=== PATIENT | female | born 1940 | race Caucasian/White ===

== ENCOUNTER → 2016-05-13 | Outpatient (CLI) | payer MEDICARE | LOC: KOH-I 10:25 | DX: R05 Cough (principal); J98.11 Atelectasis; J90 Pleural effusion, not elsewhere classified | CPT/HCPCS: 71020 ==

== ENCOUNTER → 2016-08-04 | Outpatient (CLI) | payer MEDICARE | LOC: KOH-I 12:49 | DX: R05 Cough (principal); J90 Pleural effusion, not elsewhere classified | CPT/HCPCS: 71020 ==

== ENCOUNTER 2016-08-11 19:19 | Emergency (ER) | payer MEDICARE ==
[2016-08-11 23:21] LABS: HEMOGLOBIN 13.1 gm/dl (12.3-15.3); RED BLOOD COUNT 4.34 M/UL (4.00-5.10); WHITE BLOOD COUNT 4.5 K/UL (4.5-11.0)
== END 2016-08-12 02:20 | disposition home or self-care (01) ==
LOC: ER1 19:19
PROVIDERS: Emergency Medicine
DX: R05 Cough (principal); J40 Bronchitis, not specified as acute or chronic; Z79.899 Other long term (current) drug therapy
CPT/HCPCS: 36415; 71010; 71275; 80053; 82550; 82553; 83605; 83874; 83880; 84484; 85025; 93005; 99285; J7050; Q9963

== ENCOUNTER → 2016-08-18 | Outpatient (CLI) | payer MEDICARE | LOC: ECHO 11:00 | DX: I50.20 Unspecified systolic (congestive) heart failure (principal); I51.7 Cardiomegaly; I35.8 Other nonrheumatic aortic valve disorders | CPT/HCPCS: ECHO; 93306 ==

== ENCOUNTER 2020-05-06 09:31 | Emergency (ER) | payer MEDICARE ==
[~2020-05-06 09:31] MED LIST: ABILIFY10 MG PO; AMIODARONE HCL200 MG PO; ASPIRIN CHEWABL81 MG PO; AUGMENTIN 875-1 EACH PO; BACTRIM DS TAB1 EACH PO; BACTROBAN OINT22 GM EXT; CARDIZEM60 MG PO; CARVEDILOL12.5 MG PO; CARVEDILOL6.25 MG PO; CEFUROXIME250 MG PO; CLARITIN10 MG PO; COREG25 MG PO; CYMBALTA 30 MG30 MG PO; CYMBALTA60 MG PO; DEPAKOTE500 MG PO; DIGOX125 MCG PO; DILTIAZEM 24HR240 M1 PO; GLUCOPHAGE500 MG PO; HYDROCODON-ACE1 EAC6 PO; IMDUR ER TAB 3030 MG PO; ISORDIL TAB 3030 MG PO; LANTUS100 UNIT/1 SQ; LASIX20 MG PO; LIPITOR TAB 2020 MG PO; LISINOPRIL10 MG PO; LISINOPRIL20 MG PO; LOPRESSOR 25 MG25 MG PO; MS CONTIN15 MG PO; NITROGLYCERIN0.4 MG SL; NORCO 10-325 T1 EACH PO; NORCO 5-325 TA1 EACH PO; NYAMYC60 GM TP; NYSTOP60 GM TOP; PEPCID40 MG PO; PRINIVIL20 MG PO; PROPAFENONE HC325 MG PO; QUESTRAN LIGHT 44 GM PO; SEROQUEL25 MG PO; TAMIFLU 75 MG C75 MG PO
[2020-05-06 12:40] LABS: HEMOGLOBIN 13.6 gm/dl (12.3-15.3); RED BLOOD COUNT 4.37 M/UL (4.00-5.10); WHITE BLOOD COUNT 5.1 K/UL (4.5-11.0)
[2020-05-06 13:04] LABS: BUN/CREATININE RATIO 18 (0-10)
[2020-05-10] MEDS ORDERED: K-DUR TAB 20 M20 MEQ PO (13:24)
[2020-05-22] MEDS ORDERED: TRAZODONE HCL100 MG PO (13:23)
== END 2020-05-07 19:43 | disposition home or self-care (01) ==
LOC: ER1 09:31
PROVIDERS: Emergency Medicine
DX: F20.9 Schizophrenia, unspecified (principal); E11.9 Type 2 diabetes mellitus without complications; I10 Essential (primary) hypertension; Z20.822 Contact with and (suspected) exposure to COVID-19
CPT/HCPCS: 36415; 70450; 71045; 80053; 81001; 82140; 82550; 82553; 83874; 84439; 84443; 84484; 85025; 85610; 85730; 87086; 93005; 99285; U0002

== ENCOUNTER 2020-05-30 09:51 | Inpatient (IN) | payer MEDICARE, OTHER ==
[~2020-05-30] VITALS: Ht 162.6 cm; Wt 90.7 kg
[~2020-05-30 09:51] MED LIST changes: +K-DUR TAB 20 M20 MEQ PO; +TRAZODONE HCL100 MG PO
[2020-05-30 11:30] LABS: HEMOGLOBIN 12.7 gm/dl (12.3-15.3); RED BLOOD COUNT 4.08 M/UL (4.00-5.10); WHITE BLOOD COUNT 5.2 K/UL (4.5-11.0)
[2020-05-30] MEDS ORDERED: ZYPREXA10 MG PO (13:23)
[2020-05-30] MEDS ORDERED: ZESTRIL20 MG PO (13:23)
[2020-05-30] MEDS ORDERED: LASIX TAB 20 MG20 MG PO (16:51)
[2020-05-30] MEDS ORDERED: LEVOTHYROXINE150 MCG PO (17:26)
[2020-05-31 03:32] LABS: HEMOGLOBIN 11.5 gm/dl (12.3-15.3); RED BLOOD COUNT 3.7 M/UL (4.00-5.10); WHITE BLOOD COUNT 4.4 K/UL (4.5-11.0)
[2020-06-06 02:31] LABS: HEMOGLOBIN 12.2 gm/dl (12.3-15.3); RED BLOOD COUNT 3.99 M/UL (4.00-5.10); WHITE BLOOD COUNT 4.2 K/UL (4.5-11.0)
[2020-06-06] MEDS ORDERED: ONDANSETRON HCL4 MG PO (16:14)
[2020-06-06] MEDS ORDERED: SODIUM CHLORIDE1 G1 PO ×2 (16:14→18:04)
[2020-06-06] MEDS ORDERED: HYDROCODON-ACE1 EAC4 PO (16:17)
[2020-06-07] MEDS ORDERED: HYDRALAZINE HCL25 MG PO ×2 (08:56→09:13)
[2020-06-07] MEDS ORDERED: NORVASC5 MG PO (08:56)
== END 2020-06-07 13:08 | DRG 640 ==
LOC: ER1 09:51 → M/S 12:40 → CDU 12:40 → M/S 12:40
PROVIDERS: Internal Medicine; Physician Assistant; Physician Assistant Medical; ADMIT Internal Medicine
PROC: 8E0ZXY6 Isolation (ICD-10-PCS; principal; 2020-05-30)
DX: E87.1 Hypo-osmolality and hyponatremia (principal); G93.41 Metabolic encephalopathy; I50.32 Chronic diastolic (congestive) heart failure; F11.20 Opioid dependence, uncomplicated; I13.0 Hypertensive heart and chronic kidney disease with heart failure and stage 1 through stage 4 chronic kidney disease, or unspecified chronic kidney disease; Z20.822 Contact with and (suspected) exposure to COVID-19; I48.91 Unspecified atrial fibrillation; E78.5 Hyperlipidemia, unspecified; E11.9 Type 2 diabetes mellitus without complications; E03.9 Hypothyroidism, unspecified; Z96.1 Presence of intraocular lens; K21.9 Gastro-esophageal reflux disease without esophagitis; I34.0 Nonrheumatic mitral (valve) insufficiency; I27.20 Pulmonary hypertension, unspecified; E66.9 Obesity, unspecified; F20.9 Schizophrenia, unspecified; F31.9 Bipolar disorder, unspecified; G89.29 Other chronic pain; I49.5 Sick sinus syndrome; N18.30 Chronic kidney disease, stage 3 unspecified; Z98.41 Cataract extraction status, right eye; Z85.3 Personal history of malignant neoplasm of breast; Z98.42 Cataract extraction status, left eye; Z90.11 Acquired absence of right breast and nipple; Z90.49 Acquired absence of other specified parts of digestive tract; Z90.710 Acquired absence of both cervix and uterus; Z79.84 Long term (current) use of oral hypoglycemic drugs; Z79.890 Hormone replacement therapy; Z79.899 Other long term (current) drug therapy; Z68.34 Body mass index [BMI] 34.0-34.9, adult
CPT/HCPCS: 36415; 51701; 70450; 71045; 80048; 80053; 81001; 82140; 82436; 82570; 82962; 83735; 83935; 84133; 84295; 84300; 84439; 84443; 85025; 85027; 93005; 96372; 96374; 97110; 97110-GP-CQ; 97116; 97116-GP-CQ; 97161; 97166; 97530; 97530-GP-CQ; 97535; 99284; G0008; G0378; J7030; U0002

== ENCOUNTER → 2020-09-23 | Outpatient (CLI) | payer MEDICARE, OTHER ==
[~2020-09-23] MED LIST changes: +ELIQUIS5 MG PO; +HUMALOG100 UNIT/1 SC; +HYDRALAZINE HCL25 MG PO; +HYDROCODON-ACE1 EAC4 PO; +HYDROXYZINE HCL25 MG PO; +LASIX TAB 20 MG20 MG PO; +LEVOTHYROXINE150 MCG PO; +MELATONIN5 M2 PO; +NAMENDA10 MG PO; +NORVASC5 MG PO; +ONDANSETRON HCL4 MG PO; +SENNA LAX8.6 MG PO; +SEROQUEL50 MG PO; +SODIUM CHLORIDE1 G1 PO; +SODIUM CHLORIDE1 GM PO; +ZESTRIL20 MG PO; +ZYPREXA10 MG PO; +ZYPREXA2.5 MG PO
== END ==
LOC: HEART CORB 09-16 09:15
DX: R07.2 Precordial pain (principal)
CPT/HCPCS: 78452; A9502; J2785

== ENCOUNTER 2020-11-29 15:37 | Inpatient (IN) | payer MEDICARE, OTHER ==
[~2020-11-29] VITALS: Ht 162.6 cm; Wt 97.1 kg
[~2020-11-29 15:37] MED LIST changes: -ELIQUIS5 MG PO; -HUMALOG100 UNIT/1 SC; -HYDROXYZINE HCL25 MG PO; -MELATONIN5 M2 PO; -NAMENDA10 MG PO; -SENNA LAX8.6 MG PO; -SEROQUEL50 MG PO; -SODIUM CHLORIDE1 GM PO; -ZYPREXA2.5 MG PO
[2020-11-29 16:28] LABS: HEMOGLOBIN 11.3 gm/dl (12.3-15.3); RED BLOOD COUNT 3.61 M/UL (4.00-5.10)
[2020-11-30 05:07] LABS: HEMOGLOBIN 10.9 gm/dl (12.3-15.3); RED BLOOD COUNT 3.52 M/UL (4.00-5.10); WHITE BLOOD COUNT 4.5 K/UL (4.5-11.0)
[2020-11-30] MEDS ORDERED: ZYPREXA2.5 MG PO (06:33)
[2020-11-30] MEDS ORDERED: SODIUM CHLORIDE1 GM PO (06:34)
[2020-11-30] MEDS ORDERED: MELATONIN5 M2 PO (06:35)
[2020-11-30] MEDS ORDERED: HUMALOG100 UNIT/1 SC (06:38)
[2020-11-30] MEDS ORDERED: ELIQUIS5 MG PO (06:38)
[2020-11-30] MEDS ORDERED: SEROQUEL50 MG PO (06:38)
[2020-11-30] MEDS ORDERED: NAMENDA10 MG PO (06:38)
[2020-11-30] MEDS ORDERED: HYDROXYZINE HCL25 MG PO (06:39)
[2020-11-30] MEDS ORDERED: SENNA LAX8.6 MG PO (06:39)
[2020-12-01 06:47] LABS: HEMOGLOBIN 10.5 gm/dl (12.3-15.3); RED BLOOD COUNT 3.39 M/UL (4.00-5.10)
[2020-12-01 06:54] LABS: WHITE BLOOD COUNT 3.1 K/UL (4.5-11.0)
[2020-12-02 05:47] LABS: HEMOGLOBIN 9.1 gm/dl (12.3-15.3); WHITE BLOOD COUNT 2.7 K/UL (4.5-11.0)
[2020-12-02 05:56] LABS: RED BLOOD COUNT 2.97 M/UL (4.00-5.10)
[2020-12-02 06:38] LABS: BUN/CREATININE RATIO 8 (0-10)
== END 2020-12-02 12:35 | disposition home or self-care (01) | DRG 640 ==
LOC: ER1 15:37 → CDU 17:39 → M/S 21:50
PROVIDERS: Physician Assistant; Preventive Medicine Occupational Medicine; ADMIT Internal Medicine
DX: E87.1 Hypo-osmolality and hyponatremia (principal); U07.1 COVID-19; D61.818 Other pancytopenia; I50.32 Chronic diastolic (congestive) heart failure; I27.20 Pulmonary hypertension, unspecified; G40.909 Epilepsy, unspecified, not intractable, without status epilepticus; K21.9 Gastro-esophageal reflux disease without esophagitis; I11.0 Hypertensive heart disease with heart failure; E03.9 Hypothyroidism, unspecified; F03.90 Unspecified dementia, unspecified severity, without behavioral disturbance, psychotic disturbance, mood disturbance, and anxiety; E11.9 Type 2 diabetes mellitus without complications; E78.5 Hyperlipidemia, unspecified; E66.9 Obesity, unspecified; E86.9 Volume depletion, unspecified; I48.91 Unspecified atrial fibrillation; Z79.01 Long term (current) use of anticoagulants; Z79.82 Long term (current) use of aspirin; Z79.899 Other long term (current) drug therapy; Z79.4 Long term (current) use of insulin; Z85.3 Personal history of malignant neoplasm of breast; Z90.11 Acquired absence of right breast and nipple; Z90.710 Acquired absence of both cervix and uterus; Z98.42 Cataract extraction status, left eye; Z98.41 Cataract extraction status, right eye; Z82.49 Family history of ischemic heart disease and other diseases of the circulatory system; Z68.36 Body mass index [BMI] 36.0-36.9, adult
CPT/HCPCS: 36415; 71045; 80048; 80053; 81001; 82436; 82533; 82962; 83735; 83880; 83935; 84133; 84300; 84439; 84443; 85025; 85027; 99284; J7030; U0002

== ENCOUNTER 2021-01-17 18:04 | Emergency (ER) | payer MEDICARE, OTHER ==
[~2021-01-17 18:04] MED LIST changes: +ELIQUIS5 MG PO; +HUMALOG100 UNIT/1 SC; +HYDROXYZINE HCL25 MG PO; +MELATONIN5 M2 PO; +NAMENDA10 MG PO; +SENNA LAX8.6 MG PO; +SEROQUEL50 MG PO; +SODIUM CHLORIDE1 GM PO; +ZYPREXA2.5 MG PO
[2021-01-17 19:20] LABS: HEMOGLOBIN 11.9 gm/dl (12.3-15.3); RED BLOOD COUNT 3.56 M/UL (4.00-5.10); WHITE BLOOD COUNT 4.6 K/UL (4.5-11.0)
== END 2021-01-17 22:29 | disposition home or self-care (01) ==
LOC: ER1 18:04
PROVIDERS: Preventive Medicine Occupational Medicine
DX: F41.9 Anxiety disorder, unspecified (principal); I48.91 Unspecified atrial fibrillation; I10 Essential (primary) hypertension; E11.9 Type 2 diabetes mellitus without complications; Z20.822 Contact with and (suspected) exposure to COVID-19
CPT/HCPCS: 70450; 71045; 80053; 81001; 82550; 82553; 83605; 83690; 83874; 83880; 84484; 85025; 85652; 86140; 87086; 93005; 99285; J7030; J7050; U0002

== ENCOUNTER 2021-02-12 14:55 | Emergency (ER) | payer MEDICARE ==
[~2021-02-12 14:55] MED LIST changes: -HUMALOG100 UNIT/1 SC; +HUMALOG100 UNIT/1 SQ; -K-DUR TAB 20 M20 MEQ PO; +K-TAB ER10 MEQ PO; -TRAZODONE HCL100 MG PO; +TRAZODONE HCL150 MG PO; +ZESTRIL10 MG PO; -ZESTRIL20 MG PO
[2021-02-12 16:47] LABS: HEMOGLOBIN 11.7 gm/dl (12.3-15.3); RED BLOOD COUNT 3.73 M/UL (4.00-5.10); WHITE BLOOD COUNT 4.6 K/UL (4.5-11.0)
[2021-02-12 17:15] LABS: BUN/CREATININE RATIO 13 (0-10)
[2021-02-13 07:44] LABS: HEMOGLOBIN 11.7 gm/dl (12.3-15.3); RED BLOOD COUNT 3.72 M/UL (4.00-5.10)
[2021-02-13 07:48] LABS: WHITE BLOOD COUNT 3.3 K/UL (4.5-11.0)
[2021-02-13 08:10] LABS: BUN/CREATININE RATIO 13 (0-10)
== END 2021-02-13 19:00 | disposition home or self-care (01) ==
LOC: ER1 14:55
PROVIDERS: Emergency Medicine; Physician Assistant
DX: R41.0 Disorientation, unspecified (principal); Z20.822 Contact with and (suspected) exposure to COVID-19; R00.0 Tachycardia, unspecified; I48.91 Unspecified atrial fibrillation; I11.0 Hypertensive heart disease with heart failure; I50.9 Heart failure, unspecified
CPT/HCPCS: 70450; 71045; 80053; 81001; 82550; 82553; 83605; 83874; 84439; 84443; 84484; 85025; 87086; 93005; 99285; U0002